=== PATIENT | male | born 1980 | race African-American/Black ===

== ENCOUNTER 2018-01-02 14:36 | Emergency (ER) | payer MEDICAID ==
[~2018-01-02] VITALS: Ht 182.9 cm; Wt 75.0 kg
[2018-01-02 16:09] LABS: EOSINOPHILS % 1.2 % (0.0-5.0); HEMATOCRIT. 43.3 % (42.0-52.0); HEMOGLOBIN. 15.1 g/dL (14.0-18.0); LYMPHOCYTES % 51.3 % (20.0-50.0); MEAN CORPUSCULAR HEMOGLOBIN 30.6 pg (28.0-32.0); MEAN CORPUSCULAR VOLUME 87.7 fL (80.0-94.0); MEAN PLATELET VOLUME 6.9 fl (7.4-10.4); MONOCYTES % 6.3 % (2.0-8.0); NEUTROPHILS % 40.2 % (40.0-76.0); PLATELET 343 x1000/uL (130-400); RED BLOOD CELL COUNT 4.94 mill/uL (4.7-6.1); RED CELL DISTRIBUTION WIDTH 16.4 % (11.6-14.6)
[2018-01-02 16:13] LABS: CHLORIDE 97 mEq/L (98-107)
[2018-01-02 16:24] LABS: ETHANOL BLOOD 241 mg/dL
[2018-01-02 16:25] LABS: CLARITY URINE CLEAR (CLEAR); COLOR URINE YELLOW (YELLOW); KETONES URINE NEGATIVE (NEGATIVE); LEUKOCYTE ESTERASE URINE NEGATIVE (NEGATIVE); NITRITE URINE NEGATIVE (NEGATIVE); OCCULT BLOOD URINE NEGATIVE (NEGATIVE); PROTEIN URINE TRACE (NEGATIVE); UROBILINOGEN URINE 0.2 E.U./dL (0.2-1.0)
[2018-01-02 16:34] LABS: *AMPHETAMINES SCREEN URINE NEGATIVE (NEGATIVE)
[2018-01-02 16:35] LABS: *BARBITURATES SCREEN URINE NEGATIVE (NEGATIVE); *BENZODIAZEPINES SCREEN URINE NEGATIVE (NEGATIVE); *COCAINE SCREEN URINE NEGATIVE (NEGATIVE); METHADONE URINE SCREEN NEGATIVE (NEGATIVE); OPIATES URINE SCREEN NEGATIVE (NEGATIVE)
[2018-01-02 16:36] LABS: CANNABINOID URINE SCREEN NEGATIVE (NEGATIVE); PHENCYCLIDINE URINE SCREEN NEGATIVE (NEGATIVE)
[2018-01-02] MEDS ORDERED: LORAZEPAM 1MG TABLET PO ONE (17:30)
[2018-01-02] MEDS: OLANZAPINE 10MG TABLET PO SCH (17:58)
[2018-01-03] MEDS ORDERED: SERTRALINE HCL 100MG TABLET PO SCH (09:30)
[2018-01-03] MEDS ORDERED: TENOFOVIR 300MG TABLET PO ONE (09:30)
[2018-01-03] MEDS ORDERED: TENOFOVIR 300MG TABLET PO SCH (10:00)
[2018-01-03] MEDS: OLANZAPINE 10MG TABLET PO SCH (13:00)
[2018-01-03 19:45] VITALS: BP 177/114
[2018-01-03] MEDS ORDERED: CLONIDINE 0.1MG TABLET PO ONE (20:00)
== END 2018-01-03 20:29 ==
LOC: ER 15:21
DX: F20.9 Schizophrenia, unspecified (principal); R45.851 Suicidal ideations; F10.129 Alcohol abuse with intoxication, unspecified; R44.0 Auditory hallucinations; I10 Essential (primary) hypertension; Y90.8 Blood alcohol level of 240 mg/100 ml or more; Z98.890 Other specified postprocedural states
CPT/HCPCS: 36415; 80053; 80305; 80307; 80329; 81003; 85025; 99285; G0482

== ENCOUNTER 2018-04-15 14:56 | Emergency (ER) | payer MEDICAID ==
[~2018-04-15] VITALS: Ht 180.3 cm; Wt 80.0 kg
[2018-04-15] MEDS ORDERED: LORAZEPAM 1MG TABLET PO ONE (18:00)
[2018-04-15 20:50] LABS: BASOPHILS % 0.5 % (0.0-2.0); EOSINOPHILS % 0.3 % (0.0-5.0); HEMATOCRIT. 41.1 % (42.0-52.0); HEMOGLOBIN. 13.9 g/dL (14.0-18.0); LYMPHOCYTES % 28.8 % (20.0-50.0); MEAN CORPUSCULAR HEMOGLOBIN 31.2 pg (28.0-32.0); MEAN CORPUSCULAR VOLUME 92.5 fL (80.0-94.0); MEAN PLATELET VOLUME 7.7 fl (7.4-10.4); MONOCYTES % 5.4 % (2.0-8.0); PLATELET 309 x1000/uL (130-400); RED BLOOD CELL COUNT 4.44 mill/uL (4.7-6.1); RED CELL DISTRIBUTION WIDTH 14.8 % (11.6-14.6)
[2018-04-15 20:52] LABS: CHLORIDE 98 mEq/L (98-107)
[2018-04-15 20:59] LABS: ETHANOL BLOOD < 10 mg/dL
[2018-04-15 21:02] LABS: CREATINE KINASE 294 IU/L (39-308)
[2018-04-15 21:07] LABS: CLARITY URINE CLEAR (CLEAR); COLOR URINE YELLOW (YELLOW); KETONES URINE 1+ (NEGATIVE); LEUKOCYTE ESTERASE URINE NEGATIVE (NEGATIVE); NITRITE URINE NEGATIVE (NEGATIVE); OCCULT BLOOD URINE TRACE (NEGATIVE); PH URINE 6.5 (4.5-8.0); PROTEIN URINE NEGATIVE (NEGATIVE); SPECIFIC GRAVITY URINE 1.024 (1.005-1.030)
[2018-04-15 21:22] LABS: *AMPHETAMINES SCREEN URINE NEGATIVE (NEGATIVE); *BARBITURATES SCREEN URINE NEGATIVE (NEGATIVE); *BENZODIAZEPINES SCREEN URINE PRESUMTIVE POSITIVE (NEGATIVE); *COCAINE SCREEN URINE NEGATIVE (NEGATIVE); METHADONE URINE SCREEN NEGATIVE (NEGATIVE); OPIATES URINE SCREEN NEGATIVE (NEGATIVE)
[2018-04-15 21:24] LABS: CANNABINOID URINE SCREEN NEGATIVE (NEGATIVE); PHENCYCLIDINE URINE SCREEN NEGATIVE (NEGATIVE)
[2018-04-15] MEDS ORDERED: QUETIAPINE FUMARATE 100MG TABLET PO SCH (22:00)
[2018-04-16 07:29] VITALS: BP 122/76
[2018-04-16] MEDS ORDERED: QUETIAPINE FUMARATE 100MG TABLET PO ONE (07:45)
== END 2018-04-16 07:53 | disposition home or self-care (01) ==
LOC: ER 14:56
DX: E86.0 Dehydration (principal); R53.1 Weakness; R45.851 Suicidal ideations; F29 Unspecified psychosis not due to a substance or known physiological condition; F20.9 Schizophrenia, unspecified; Z98.890 Other specified postprocedural states
CPT/HCPCS: 36415; 80053; 80305; 80307; 80329; 81003; 82550; 84443; 85025; 93005; 99284; G0482

== ENCOUNTER 2018-10-30 00:59 | Emergency (ER) | payer MEDICARE, MEDICAID ==
[~2018-10-30] VITALS: Ht 180.3 cm; Wt 92.0 kg
[~2018-10-30 00:59] MED LIST: AMLO10TA80 PO; DIPH50CA38 PO; DIVA500T51 PO; EMTR1TAB13 PO; FOLI-43 PO; L25 PO; ODEFSEY PO; SERT-112 PO; TEST75GE TD; THIA100T72 PO; TRAZ-213 PO
[2018-10-30] MEDS ORDERED: CHLORDIAZEPOXIDE 25MG CAPSULE PO ONE (02:15)
[2018-10-30] MEDS ORDERED: SODIUM CHLORIDE 0.9% 1,000 ML IV ONE (03:05)
[2018-10-30 03:17] LABS: BASOPHILS % 0.7 % (0.0-2.0); HEMATOCRIT. 35.4 % (42.0-52.0); HEMOGLOBIN. 12.4 g/dL (14.0-18.0); LYMPHOCYTES % 42.8 % (20.0-50.0); MEAN CORPUSCULAR HEMOGLOBIN 30.6 pg (28.0-32.0); MEAN CORPUSCULAR VOLUME 87.3 fL (80.0-94.0); MEAN PLATELET VOLUME 7.5 fl (7.4-10.4); MONOCYTES % 5.7 % (2.0-8.0); NEUTROPHILS % 47.8 % (40.0-76.0); PLATELET 171 x1000/uL (130-400); RED BLOOD CELL COUNT 4.05 mill/uL (4.7-6.1); RED CELL DISTRIBUTION WIDTH 14.6 % (11.6-14.6)
[2018-10-30 03:24] LABS: CHLORIDE 108 mEq/L (98-107)
[2018-10-30 04:53] VITALS: BP 122/91
== END 2018-10-30 05:15 | disposition home or self-care (01) ==
LOC: ER 00:59
DX: F10.10 Alcohol abuse, uncomplicated (principal); Y90.9 Presence of alcohol in blood, level not specified
CPT/HCPCS: 36415; 80053; 85025; 99283; J7030